=== PATIENT | female | born 1940 | race Caucasian/White ===

== ENCOUNTER 2017-10-04 12:16 | Outpatient (CLI) | payer OTHER | END 2017-10-04 20:11 | disposition home or self-care (01) | LOC: SRD 12:16 | PROVIDERS: ATTEND Internal Medicine | DX: J40 Bronchitis, not specified as acute or chronic (principal); I70.90 Unspecified atherosclerosis; M40.294 Other kyphosis, thoracic region | CPT/HCPCS: 71046-TC ==

== ENCOUNTER 2023-04-19 12:43 | Inpatient (IN) | payer OTHER, MEDICAID ==
[~2023-04-19] VITALS: Ht 152.4 cm; Wt 55.3 kg
[2023-04-19 12:43] VITALS: BP_SYST 95; PULSE 86; RESP 18; TEMP 97.9; O2SAT 98
[2023-04-19 14:39] LABS: INFLUENZA TYPE A Negative (NEGATIVE); INFLUENZA TYPE B NEGATIVE (NEGATIVE)
[2023-04-19 14:39] LABS: BASOPHILS % (AUTO) 0.3 % (0.0-2.0); HEMOGLOBIN 11.7 g/dL (12.0-16.0); LYMPHOCYTES # (AUTO) 0.7 K/uL (1.0-5.5); LYMPHOCYTES % (AUTO) 5.6 % (20.5-51.5); MEAN CORPUSCULAR HEMOGLOBIN 29 pg (27-31); MEAN CORPUSCULAR HGB CONC 33 % (32-36); MEAN CORPUSCULAR VOLUME 85 fL (79.0-98.0); MONOCYTES # (AUTO) 0.5 K/uL (0.0-1.0); MONOCYTES % (AUTO) 3.9 % (1.7-9.3); NEUTROPHILS # (AUTO) 11.5 K/uL (1.8-7.7); NEUTROPHILS % (AUTO) 90.2 % (40.0-70.0); PLATELET COUNT (AUTO) 459 K/uL (130-430); RED CELL DISTRIBUTION WIDTH 16.8 % (9.0-15.0); WHITE BLOOD COUNT (AUTO) 12.8 K/uL (4.8-10.8)
[2023-04-19 14:41] LABS: COVID19 ANTIGEN SOFIA FIA NEGATIVE (NEGATIVE)
[2023-04-19] MEDS ORDERED: cefTRIAXone 1 GM IVPB PREMIX 50 ML IV ONE (15:15)
[2023-04-19] MEDS ORDERED: AZITHROMYCIN 500 MG in NS 250 ML IV ONE (15:15)
[2023-04-19] MEDS ORDERED: AZITHROMYCIN 500 MG/VIAL (ZITHROMAX) IV ONE (15:20)
[2023-04-19] MEDS ORDERED: SODIUM BICARBONATE 8.4% JECT 50 MEQ/50 ML SYRINGE ONE (16:10)
[2023-04-19] MEDS ORDERED: CALCIUM CHLORIDE 1 GM/10 ML DISP.SYRIN (14 mEq Ca++/SYR) ONE (16:10)
[2023-04-19] MEDS ORDERED: EPINEPHrine JECT 0.1 MG/ML SYR ONE (16:10)
[2023-04-19 16:44] LABS: INR 1.1 (0.8-1.2); PROTHROMBIN TIME 11.4 SECS (9.5-12.5)
[2023-04-19 16:46] LABS: ANION GAP 7 (5-15); CALCIUM 7.6 mg/dL (8.4-11.0); CARBON DIOXIDE 29 mmol/L (23-29); CHLORIDE 97 mmol/L (98-107); CREATININE 0.92 mg/dL (0.55-1.30); GLUCOSE 271 mg/dL (74-106); LIPASE 15 U/L (16-77); POTASSIUM 4.8 mmol/L (3.5-5.1); SODIUM SERUM 133 mmol/L (136-145); UREA NITROGEN, BLOOD 21 mg/dL (8-21)
[2023-04-19 17:05] LABS: BILIRUBIN,URINE NEGATIVE (NEGATIVE); BLOOD, URINE NEGATIVE (NEGATIVE); CLARITY/URINE CLOUDY (CLEAR); COLOR,URINE YELLOW (YELLOW); GLUCOSE,URINE NEGATIVE (NEGATIVE); KETONES,URINE NEGATIVE (NEGATIVE); LEUKOCYTE ESTERASE ,URINE 1+ (NEGATIVE); NITRITE, URINE POSITIVE (NEGATIVE); PH,URINE 6.5 (5.0-8.0); PROTEIN URINE NEGATIVE (NEGATIVE)
[2023-04-19 17:05] LABS: BLOOD GAS PH 7.166 (7.350-7.450)
[2023-04-19 17:06] LABS: ABG O2 SAT% ESTIMATE 99.8 % (94.0-100.0); ALLEN'S TEST POSITIVE (P); BLOOD GAS BASE EXCESS -13.2 mmol/L (-3.0-3.0); BLOOD GAS HCO3 14.9 mmol/L (21.0-27.0); BLOOD GAS PCO2 42.2 mmHg (35.0-45.0); BLOOD GAS PO2 467.4 mmHg (75.0-100.0)
[2023-04-19] MEDS ORDERED: NACL 0.9% 1,000 ML IV ONE ×2 (17:15→17:45)
[2023-04-19 17:18] LABS: BACTERIA,URINE MANY /HPF (None Seen); RBC,URINE 0-3 /HPF (0-3)
[2023-04-19] MEDS ORDERED: DONE10TA44 PO (17:39)
[2023-04-19] MEDS ORDERED: INSU100V SUBCUT (17:39)
[2023-04-19] MEDS ORDERED: LIP20 PO (17:39)
[2023-04-19] MEDS ORDERED: LEVO125T PO (17:39)
[2023-04-19] MEDS ORDERED: PRED20TA PO (17:39)
[2023-04-19] MEDS ORDERED: PRED10TA PO ×2 (17:39)
[2023-04-19] MEDS ORDERED: MAGN400T10 PO (17:39)
[2023-04-19] MEDS ORDERED: ACET325T53 PO (17:39)
[2023-04-19] MEDS ORDERED: APIX2.5T PO (17:39)
[2023-04-19] MEDS ORDERED: DIPH25CA83 PO (17:39)
[2023-04-19] MEDS ORDERED: CEL20 PO (17:39)
[2023-04-19] MEDS ORDERED: PEPTO PO (17:39)
[2023-04-19] MEDS ORDERED: GLIP10TA21 PO (17:39)
[2023-04-19] MEDS ORDERED: MOM PO (17:39)
[2023-04-19] MEDS ORDERED: FLEETMO RC (17:39)
[2023-04-19] MEDS ORDERED: PRED5TAB PO (17:39)
[2023-04-19] MEDS ORDERED: BISA-79 PO (17:39)
[2023-04-19] MEDS ORDERED: INSU100V9 SQ (17:39)
[2023-04-19] MEDS ORDERED: NOREPINEPHRINE BITARTRATE 4 MG in D5W 246 ML IV ONE (17:45)
[2023-04-19 17:53] LABS: HEMATOCRIT 33.5 % (36-48); HEMOGLOBIN 10.4 g/dL (12.0-16.0); MEAN CORPUSCULAR HEMOGLOBIN 28 pg (27-31); MEAN CORPUSCULAR HGB CONC 31 % (32-36); MEAN CORPUSCULAR VOLUME 90 fL (79.0-98.0); PLATELET COUNT (AUTO) 336 K/uL (130-430); RED BLOOD CELL COUNT(AUTO) 3.74 MIL/uL (4.2-6.2); RED CELL DISTRIBUTION WIDTH 16.9 % (9.0-15.0); WHITE BLOOD COUNT (AUTO) 26.7 K/uL (4.8-10.8)
[2023-04-19] MEDS ORDERED: MAGNESIUM SULFATE 50 ML IV PRN (18:00)
[2023-04-19] MEDS ORDERED: LORazepam 2 MG/ML VIAL IVP PRN ×2 (18:00→22:45)
[2023-04-19] MEDS ORDERED: ONDANSETRON HCL 4 MG/2 ML VIAL IVP PRN (18:00)
[2023-04-19] MEDS ORDERED: DEXTROSE 50% JECT 50 ML DISP.SYRIN IVP PRN (18:00)
[2023-04-19] MEDS ORDERED: DOCUSATE SODIUM 100 MG CAPSULE PO PRN (18:00)
[2023-04-19] MEDS ORDERED: MORPHINE 2 MG/ML INJ. SYRINGE IVP PRN (18:00)
[2023-04-19] MEDS ORDERED: ZOLPIDEM TARTRATE 5 MG TABLET PO PRN (18:00)
[2023-04-19] MEDS ORDERED: INSULIN LISPRO SLIDING SCALE 100 UNITS/ML, 3 ML VIAL (humaLOG) SUBCUT PRN (18:00)
[2023-04-19] MEDS ORDERED: D5NS 1,000 ML IV SCH (18:00)
[2023-04-19] MEDS ORDERED: PIPERACILLIN/TAZO 3.375/DEX-IS 50 ML IV SCH (18:00)
[2023-04-19] MEDS ORDERED: POTASSIUM CHLORIDE 20 MEQ TABLET.ER PO PRN (18:00)
[2023-04-19] MEDS ORDERED: MUPIROCIN 2% TOPICAL OINTMENT 22 GM NS PRN (18:00)
[2023-04-19] MEDS ORDERED: NALOXONE HCL 0.4 MG/ML AMP (NARCAN) IVP PRN ×2 (18:00)
[2023-04-19] MEDS ORDERED: ACETAMINOPHEN 500 MG TABLET PO PRN ×3 (18:15)
[2023-04-19 18:19] LABS: ANISOCYTOSIS 1+; BAND % (MANUAL) 21 % (0-6); BASOPHILS % (MANUAL) 0 % (0-2); EOSINOPHILS % (MANUAL) 0 % (0-7); LYMPHOCYTES % (MANUAL) 11 % (20-46); MONOCYTES % (MANUAL) 3 % (0-11); PLATELET ESTIMATE ADEQUATE (ADEQUATE)
[2023-04-19 18:20] LABS: OVALOCYTES MODERATE
[2023-04-19 18:26] LABS: ANION GAP 22 (5-15); CALCIUM 8.6 mg/dL (8.4-11.0); CARBON DIOXIDE 14 mmol/L (23-29); CHLORIDE 100 mmol/L (98-107); CREATININE 1.21 mg/dL (0.55-1.30); POTASSIUM 4.9 mmol/L (3.5-5.1); SODIUM SERUM 136 mmol/L (136-145); UREA NITROGEN, BLOOD 22 mg/dL (8-21)
[2023-04-19 18:50] LABS: GLUCOSE 473 mg/dL (74-106)
[2023-04-19] MEDS: MORPHINE 2 MG/ML INJ. SYRINGE IVP PRN ×2 (19:57→20:56)
[2023-04-19 20:19] VITALS: BP_SYST 120; PULSE 92; O2SAT 100
[2023-04-19 20:22] VITALS: BP_SYST 120; PULSE 92
[2023-04-19] MEDS ORDERED: LORazepam 2 MG/ML VIAL ONE (20:46)
[2023-04-19] MEDS ORDERED: HEPARIN SODIUM,PORCINE 5,000 UNITS/ML VIAL SUBCUT SCH (21:00)
[2023-04-19] MEDS ORDERED: LORazepam 2 MG/ML VIAL IVP ONE (21:00)
[2023-04-19 22:49] VITALS: BP_SYST 96; PULSE 92; RESP 18; TEMP 97.9; O2SAT 21
[2023-04-19 22:53] VITALS: O2SAT 90
[2023-04-19] MEDS ORDERED: MORPHINE SULFATE IN 0.9 % NACL 100 ML IV ONE (23:07)
[2023-04-19] MEDS: MORPHINE SULFATE IN 0.9 % NACL 100 ML IV PRN (23:35)
[2023-04-20] VITALS (19 sets, daily range): BP systolic 43–89; PULSE 90–128; RESP 5–58; TEMP 96.8–98; O2SAT 34–100
[2023-04-20] MEDS ORDERED: PIPERACILLIN/TAZOBACTAM 2.25 GM/ D5W 50 ML IV SCH ×2
[2023-04-20] MEDS: MORPHINE SULFATE IN 0.9 % NACL 100 ML IV PRN ×3 (05:10→16:45)
[2023-04-21] MEDS: MORPHINE SULFATE IN 0.9 % NACL 100 ML IV PRN (01:44)
[2023-04-21 05:03] LABS: BASOPHILS # (AUTO) 0.1 K/uL (0.0-0.2); BASOPHILS % (AUTO) 0.3 % (0.0-2.0); EOSINOPHILS # (AUTO) 0.1 K/uL (0.0-0.4); EOSINOPHILS % (AUTO) 0.4 % (0.0-4.0); HEMATOCRIT 35.4 % (36-48); HEMOGLOBIN 10.7 g/dL (12.0-16.0); LYMPHOCYTES # (AUTO) 0.6 K/uL (1.0-5.5); LYMPHOCYTES % (AUTO) 2.9 % (20.5-51.5); MEAN CORPUSCULAR HEMOGLOBIN 27 pg (27-31); MEAN CORPUSCULAR HGB CONC 30 % (32-36); MEAN CORPUSCULAR VOLUME 90 fL (79.0-98.0); MONOCYTES # (AUTO) 0.8 K/uL (0.0-1.0); MONOCYTES % (AUTO) 3.6 % (1.7-9.3); NEUTROPHILS % (AUTO) 92.8 % (40.0-70.0); PLATELET COUNT (AUTO) 353 K/uL (130-430); RED BLOOD CELL COUNT(AUTO) 3.92 MIL/uL (4.2-6.2); RED CELL DISTRIBUTION WIDTH 17.7 % (9.0-15.0); WHITE BLOOD COUNT (AUTO) 21.5 K/uL (4.8-10.8)
[2023-04-21 05:26] LABS: ANION GAP 13 (5-15); CALCIUM 8.2 mg/dL (8.4-11.0); CARBON DIOXIDE 27 mmol/L (23-29); CHLORIDE 99 mmol/L (98-107); CREATININE 2.68 mg/dL (0.55-1.30); GLUCOSE 321 mg/dL (74-106); SODIUM SERUM 139 mmol/L (136-145); UREA NITROGEN, BLOOD 42 mg/dL (8-21)
[2023-04-21 06:16] LABS: POTASSIUM 6.6 mmol/L (3.5-5.1)
[2023-04-21 08:00] VITALS: PULSE 122; RESP 5; TEMP 96.3
== END 2023-04-21 11:00 | DRG 871 ==
LOC: SED 12:43 → SIC 17:19 → STU 04-20 19:00 → SMU 04-21 05:01
PROVIDERS: ADMIT General Practice; ATTEND General Practice
PROC: 5A1935Z Respiratory Ventilation, Less than 24 Consecutive Hours (ICD-10-PCS; principal; 2023-04-19)
PROC: 0BH17EZ Insertion of Endotracheal Airway into Trachea, Via Natural or Artificial Opening (ICD-10-PCS; 2023-04-19)
DX: A41.9 Sepsis, unspecified organism (principal); J18.9 Pneumonia, unspecified organism; J96.01 Acute respiratory failure with hypoxia; R65.21 Severe sepsis with septic shock; I50.9 Heart failure, unspecified; Z20.822 Contact with and (suspected) exposure to COVID-19; E78.5 Hyperlipidemia, unspecified; I48.91 Unspecified atrial fibrillation; I11.0 Hypertensive heart disease with heart failure; Z79.01 Long term (current) use of anticoagulants; Z79.4 Long term (current) use of insulin; Z79.899 Other long term (current) drug therapy; I46.9 Cardiac arrest, cause unspecified
CPT/HCPCS: 36415; 36600; 71045; 80048; 81000; 81001; 81015; 82803; 83037; 83690; 83735; 83880; 84484; 85007; 85025; 85027; 85610-TC; 85730-TC; 87040; 87086; 93005; 94002; 94640; 96365; 96368; 99285; G0378; J0171; J0456; J0696; J2060; J2270; J2543; J7060